=== PATIENT | male | born 1990 | race Caucasian/White ===

== ENCOUNTER 2018-12-24 19:04 | Emergency (ER) | payer MEDICAID, OTHER ==
[~2018-12-24] VITALS: Ht 182.9 cm; Wt 75.6 kg
[~2018-12-24 19:04] MED LIST: CEPH-357 PO; NO HOME MEDS
[2018-12-24 19:21] VITALS: BP 130/77
[2018-12-24 20:00] LABS: CLARITY,URINE CLEAR (Clear); COLOR,URINE YELLOW (Yellow); GLUCOSE, URINE NEGATIVE (Neg); KETONES,URINE NEGATIVE (Neg); LEUKOCYTE ESTERASE ,URINE NEGATIVE (Neg); NITRITES, URINE NEGATIVE (Neg); OCCULT BLOOD,URINE NEGATIVE (Neg); PROTEIN,URINE NEGATIVE (Neg)
[2018-12-24 20:06] LABS: UA COLLECTION TYPE VOIDED
[2018-12-24] MEDS ORDERED: CefTRIAXone 250MG IM Kit w/LIDOcaine IM ONE (21:50)
[2018-12-24] MEDS ORDERED: metroNIDAZOLE 500mg tablet PO ONE (21:50)
[2018-12-24] MEDS ORDERED: azithromycin 250mg tablet PO ONE (21:50)
[2018-12-24 21:59] LABS: BASOPHILS % (AUTO) 0.5 % (0-1); EOSINOPHILS # (AUTO) 0.1 X10'3 (0-0.9); EOSINOPHILS % (AUTO) 2.3 % (0-6); HEMATOCRIT 41.9 % (42.0-52.0); HEMOGLOBIN 14.5 g/dl (14.0-17.9); LYMPHOCYTES # (AUTO) 1.6 X10'3 (1.1-4.8); LYMPHOCYTES % (AUTO) 31.6 % (21-51); MEAN CORPUSCULAR HEMOGLOBIN 31.2 PG (27.0-31.0); MEAN CORPUSCULAR HGB CONC 34.5 g/dL (33.0-36.5); MEAN CORPUSCULAR VOLUME 90.3 FL (78-98); MEAN PLATELET VOLUME 7.6 FL (7.4-10.4); MONOCYTES # (AUTO) 0.6 X10'3 (0-0.9); MONOCYTES % (AUTO) 11.3 % (2-12); NEUTROPHILS # (AUTO) 2.7 X10'3 (1.8-7.7); NEUTROPHILS % (AUTO) 54.3 % (42-75); PLATELET COUNT 234 X10'3 (140-440); RED BLOOD COUNT 4.63 X10'6 (4.70-6.10); RED CELL DISTRIBUTION WIDTH 13.7 % (11.5-14.5)
[2018-12-24 22:17] LABS: ALANINE AMINOTRANSFERASE 199 U/L (12-78); ALBUMIN 3.9 G/DL (3.4-5.0); ALBUMIN/GLOBULIN RATIO 1.2 (1.1-1.5); ALKALINE PHOSPHATASE 73 IU/L (46-116); ANION GAP 4 (8-16); ASPARTATE AMINO TRANSFERASE 85 U/L (10-37); BILIRUBIN,TOTAL 0.5 MG/DL (0.1-1.0); BLOOD UREA NITROGEN 16 MG/DL (7-18); BUN/CREATININE RATIO 18.4 (5.4-32.0); CALCIUM 8.8 MG/DL (8.5-10.1); CHLORIDE 101 MMOL/L (99-107); CREATININE 0.87 MG/DL (0.60-1.10); GLUCOSE 105 MG/DL (70-104); POTASSIUM 3.4 MMOL/L (3.5-5.1); SODIUM 134 MMOL/L (135-145); TOTAL CARBON DIOXIDE 29.1 MMOL/L (24-32); TOTAL PROTEIN 7.2 G/DL (6.4-8.2); eGFR > 90 ML/MIN
== END 2018-12-24 22:27 | disposition home or self-care (01) ==
LOC: ER 19:05
DX: A64 Unspecified sexually transmitted disease (principal); J45.909 Unspecified asthma, uncomplicated; F12.90 Cannabis use, unspecified, uncomplicated; F15.90 Other stimulant use, unspecified, uncomplicated; Z79.899 Other long term (current) drug therapy; Z56.0 Unemployment, unspecified
CPT/HCPCS: 36415; 80053; 81003; 85025; 87252; 87491; 87591; 96372; 99283; J0696; J3490

== ENCOUNTER 2019-01-16 01:32 | Emergency (ER) | payer MEDICAID, OTHER ==
[~2019-01-16] VITALS: Ht 180.3 cm; Wt 82.3 kg
--- NOTE | 2019-01-16 02:00 | NUR ---
Patient came to ER with complaints of headache, feet pain and swelling all over body. Dr. Garvin examined & assured patient there was no swelling and all vitals WNL. He appeared to be under the influence of something, but stated he last used meth 2days ago. He mother was at bedside aned appeared to be under the influence also, she was quite adament that something was wrong and was very upset when Dr. Garvin told them the patien was fine. He had also been at [facility] sometime in the last few hours and was treated for a STD. Mother wanted our names and said she would take him somewhere where they could treat him for his obvious medical condition. They left w/o discharge paper work.
[2019-01-16 02:07] VITALS: BP 156/69
== END 2019-01-16 02:12 | disposition home or self-care (01) ==
LOC: ER 01:32
DX: S70.12XA Contusion of left thigh, initial encounter (principal); A64 Unspecified sexually transmitted disease; R51 Headache; M79.671 Pain in right foot; M79.672 Pain in left foot; J45.909 Unspecified asthma, uncomplicated; F12.90 Cannabis use, unspecified, uncomplicated; F15.90 Other stimulant use, unspecified, uncomplicated; Z79.2 Long term (current) use of antibiotics; Z56.0 Unemployment, unspecified; X58.XXXA Exposure to other specified factors, initial encounter; Y93.89 Activity, other specified; Y92.89 Other specified places as the place of occurrence of the external cause; Y99.8 Other external cause status
CPT/HCPCS: 99281

== ENCOUNTER 2019-04-26 19:10 | Emergency (ER) | payer MEDICAID, OTHER ==
[~2019-04-26] VITALS: Ht 182.9 cm; Wt 85.5 kg
--- NOTE | 2019-04-26 19:22 | NUR ---
patient out to CT
[2019-04-26 19:58] VITALS: BP 136/73
--- NOTE | 2019-04-26 20:23 | NUR ---
Patient was out to CT and then to x-ray for multiple x-rays. Was unable to do q15min vitals during this time.
[2019-04-26] MEDS ORDERED: TETanus/Pertussis (Acell)/Diphther VAC/PF (Tdap-Adult) 0.5ml syringe IM ONE (20:25)
[2019-04-26] MEDS ORDERED: bacitracin 15gm ointment TP ONE (20:25)
[2019-04-26] MEDS ORDERED: ibuprofen tablet 400 MG TABLET PO ONE (20:45)
== END 2019-04-26 21:12 ==
LOC: ER 19:11
DX: S01.112A Laceration without foreign body of left eyelid and periocular area, initial encounter (principal); M79.18 Myalgia, other site; M25.572 Pain in left ankle and joints of left foot; M25.512 Pain in left shoulder; M25.531 Pain in right wrist; M25.532 Pain in left wrist; F12.90 Cannabis use, unspecified, uncomplicated; F15.90 Other stimulant use, unspecified, uncomplicated; J45.909 Unspecified asthma, uncomplicated; Z56.0 Unemployment, unspecified; Z79.2 Long term (current) use of antibiotics; Y35.811A Legal intervention involving manhandling, law enforcement official injured, initial encounter; Y93.89 Activity, other specified; Y92.89 Other specified places as the place of occurrence of the external cause; Y99.8 Other external cause status
CPT/HCPCS: 12011; 70450; 71045; 72125; 73030; 73110; 73610; 90471; 99284